=== PATIENT | male | born 2005 | race Caucasian/White ===

== ENCOUNTER 2025-08-25 20:55 | Emergency (ER) | payer SELFPAY ==
[~2025-08-25] VITALS: Ht 170.2 cm; Wt 68.0 kg
[2025-08-25 20:58] VITALS: BP 132/79; PULSE 117; RESP 14; TEMP 98.5; O2SAT 95
== END 2025-08-25 21:08 | disposition left against medical advice (07) ==
LOC: ER 20:55
DX: T65.91XA Toxic effect of unspecified substance, accidental (unintentional), initial encounter (principal); Z53.21 Procedure and treatment not carried out due to patient leaving prior to being seen by health care provider; X58.XXXA Exposure to other specified factors, initial encounter; Y93.89 Activity, other specified; Y92.89 Other specified places as the place of occurrence of the external cause; Y99.8 Other external cause status
CPT/HCPCS: 99281